=== PATIENT | female | born 1955 | race Caucasian/White ===

== ENCOUNTER → 2018-07-05 | Outpatient (CLI) | payer MEDICARE, MEDICAID ==
[2018-07-05 16:01] LABS: PLATELET COUNT 71 10^3/uL (150-450)
== END ==
LOC: OD 14:09
PROVIDERS: ATTEND Pain Medicine Pain Medicine
DX: D69.6 Thrombocytopenia, unspecified (principal)
CPT/HCPCS: 36415; 85049

== ENCOUNTER → 2018-11-05 | Outpatient (CLI) | payer MEDICARE, MEDICAID ==
--- NOTE | 2018-11-05 16:42 | RADIOLOGY REPORT (SQ) ---
EXAM DESCRIPTION: T SPINE AP/LAT COMPLETED DATE/TIME: 11/05/2018 12:27 pm REASON FOR STUDY: (M54.9)DORSALGIA, UNSPECIFIED I73.9 PERIPHERAL VASCULAR DISEASE, UNSPECIFIED M54. 9 DORSALGIA, UNSPECIFIED COMPARISON: None. NUMBER OF VIEWS: Two views. TECHNIQUE: AP and lateral radiographic images acquired of the thoracic spine. LIMITATIONS: None. FINDINGS: MINERALIZATION: Normal. ALIGNMENT: Normal. No scoliosis. VERTEBRAE: No fracture or bone lesion. Maintained height, normal segmentation. DISCS: Multilevel disc space narrowing with osteophytes. HARDWARE: None in the spine. MEDIASTINUM AND SOFT TISSUES: Normal heart size and aortic contour. No soft tissue abnormality. VISUALIZED LUNG RUSHING: Clear. OTHER: No other significant finding. IMPRESSION: SPONDYLOSIS WITHOUT BONE LESION OR FRACTURE. TECHNICAL DOCUMENTATION: JOB ID: [id number] [employer]- All Rights Reserved Reading location - IP/workstation name: [email or web address]
--- NOTE | 2018-11-06 11:44 | XCELERA REPORT ---
[address] [address] Lower Extremity Arterial Evaluation Name: RODGER DOYLE Age: 62 yrs Gender: Female : 1955 Patient Status: Outpatient Patient Location: Study Date: 11/05/2018 11:24 AM Procedure: A color flow and duplex scan of the lower extremity arteries was performed bilaterally with velocity and waveform anaylsis. Ankle brachial indicies performed. Reason For Study: PVD Ordering Physician: FREDY CONNORS Performed By: Mannie Dee Measurements and Calculations Right Left THREAD WINDER PSV 124.1 96.2 cm/sec Prox PFA PSV 74.6 71.6 cm/sec Prox SFA PSV 96.8 104.8 cm/sec Mid SFA PSV -112.4 -101.2cm/sec Dist SFA PSV -95.5 -97.4 cm/sec Prox Pop A PSV 73.5 66.8 cm/sec Dist AYDE PSV 50.3 61.1 cm/sec Dist LIABILITY CLAIMS REPRESENTATIVE PSV 73.3 91.0 cm/sec Charlie Pedis PSV 27.7 39.6 cm/sec Right Side Arterial Evaluation Normal velocity and triphasic waveforms noted from the Common Femoral artery to the infrageniculate vessels . Ankle Brachial index 1.21. Left Side Arterial Evaluation Normal velocity and triphasic waveforms noted from the Common Femoral artery to the infrageniculate vessels . Ankle Brachial index 1.29. Interpretation Summary No hemodynamically significant lesions in the bilateral lower extremities, on duplex imaging, at rest. Duplex study shows no significant compromise. LELO's show no significant arterial compromise. : FREDY CONNORS > [place]
== END ==
LOC: SP 10:28
PROVIDERS: ATTEND Family Medicine
DX: I73.9 Peripheral vascular disease, unspecified (principal); M47.894 Other spondylosis, thoracic region; M54.9 Dorsalgia, unspecified
CPT/HCPCS: 72070; 93925

== ENCOUNTER 2019-07-07 12:38 | Observation (INO) | payer MEDICARE, MEDICAID ==
[2019-07-07 13:05] LABS: ABSOLUTE EOSINOPHILS # (AUTO) 0.1 10^3/uL (0.0-0.6); ABSOLUTE LYMPHOCYTES (AUTO) 0.8 10^3/uL (0.5-4.7); ABSOLUTE MONOCYTES (AUTO) 0.2 10^3/uL (0.1-1.4); ABSOLUTE NEUT (AUTO) 1.4 10^3/uL (1.7-8.2); BASOPHILS % (AUTO) 0.6 % (0-2); EOSINOPHILS % (AUTO) 5.7 % (0-6); HEMATOCRIT 32.4 % (36.0-47.0); HEMOGLOBIN 10.8 g/dL (12.0-15.5); LYMPHOCYTES % (AUTO) 30.8 % (13-45); MEAN CORPUSCULAR HGB CONC 33.4 g/dL (32.0-36.0); MEAN CORPUSCULAR VOLUME 93 fl (80-97); MONOCYTES % (AUTO) 7.7 % (3-13); SEGMENTED NEUTROPHILS % (AUTO) 55.2 % (42-78); TOTAL CELLS COUNTED % (AUTO) 100 %; WHITE BLOOD COUNT 2.5 10^3/uL (4.0-10.5)
[2019-07-07 13:16] LABS: ALBUMIN 4.1 g/dL (3.5-5.0); ALKALINE PHOSPHATASE 73 U/L (38-126); ANION GAP 9 (5-19); ASPARTATE AMINO TRANSFERASE 36 U/L (14-36); BILIRUBIN,TOTAL 0.6 mg/dL (0.2-1.3); BLOOD UREA NITROGEN 25 mg/dL (7-20); CALCIUM 8.9 mg/dL (8.4-10.2); CARBON DIOXIDE 30 mmol/L (22-30); CHLORIDE 102 mmol/L (98-107); CREATINE KINASE 33 U/L (30-135); GLUCOSE 126 mg/dL (75-110); POTASSIUM 4.3 mmol/L (3.6-5.0); TOTAL PROTEIN 7.2 g/dL (6.3-8.2)
--- NOTE | 2019-07-07 13:23 | ER Document Report ---
ED Medical Screen (RME) - General Chief Complaint: General Weakness Stated Complaint: GENERAL WEAKNESS Time Seen by Provider: 07/07/19 13:14 Primary Care Provider: FREDY CONNORS MD [Primary Care Provider] - Follow up as needed Notes: Patient states that she went to her primary doctor's office for swelling to the extremities, weakness this morning. Patient states she almost fell when ambulating into her doctor's office. Patient brought paperwork from her primary doctor's office that reports that the patient had garbled speech and they were concerned about possible TIA versus stroke wanted her evaluated for this. Patient states that the swelling to the extremities has improved although right leg appears to be more swollen when compared to the left. I have greeted and performed a rapid initial assessment of this patient. A comprehensive ED assessment and evaluation of the patient, analysis of test r esults and completion of the medical decision making process will be conducted by additional ED providers. TRAVEL OUTSIDE OF THE [place] IN LAST 30 DAYS: No - Related Data Allergies/Adverse Reactions: ciprofloxacin Allergy (Verified 07/07/19 12:53) etodolac Allergy (Verified 07/07/19 12:53) metaxalone Allergy (Verified 07/07/19 12:53) naproxen [From Naprosyn] Allergy (Verified 07/07/19 12:53) niacin Allergy (Verified 07/07/19 12:53) oxycodone Allergy (Verified 07/07/19 12:53) Past Medical History - Past Medical History Cardiac Medical History: Reports: Hx Congestive Heart Failure, Hx Hypercholesterolemia, Hx Hypertension Endocrine Medical History: Reports: Hx Diabetes Mellitus Type 2 GI Medical History: Reports: Hx Gastroesophageal Reflux Disease Past Surgical History: Reports: Hx Cholecystectomy, Hx Orthopedic Surgery - R knee, Hx Tonsillectomy Physical Exam - Vital signs Vitals: Resp 19 07/07/19 12:44 - General General appearance: Appears well, Alert Notes: Speech clear at this time 2+ edema to right lower extremity Course - Vital Signs Vital signs: Temp Pulse Resp BP Pulse Ox 97.7 F 20 137/78 H 97 07/07/19 12:46 07/07/19 13:01 07/07/19 13:01 07/07/19 13:01 - Laboratory Result Diagrams: 07/07/19 12:45 07/07/19 12:45 Laboratory results interpreted by me: 07/07/19 12:45 BUN 25 H Glucose 126 H Doctor's Discharge - Discharge Referrals: FREDY CONNORS MD [Primary Care Provider] - Follow up as needed
[2019-07-07 13:28] LABS: PLATELET COUNT 52 10^3/uL (150-450)
[2019-07-07 13:30] LABS: INTERNATIONAL RATION (INR) 1.11
[2019-07-07 13:31] LABS: PARTIAL THROMBOPLASTIN TIME 30.3 SEC (23.5-35.8)
[2019-07-07 13:33] LABS: CREATINE KINASE MB 0.49 ng/mL (<4.55)
[2019-07-07 13:34] LABS: PROTHROMBIN TIME 14.4 SEC (11.4-15.4)
[2019-07-07 13:45] LABS: TROPONIN I < 0.012 ng/mL
[2019-07-07 13:49] LABS: APPEARANCE,URINE CLEAR; BILIRUBIN,URINE NEGATIVE (NEGATIVE); COLOR,URINE COLORLESS; GLUCOSE, URINE NEGATIVE (NEGATIVE); KETONES,URINE NEGATIVE (NEGATIVE); LEUKOCYTE ESTERASE,URINE NEGATIVE (NEGATIVE); NITRITE,URINE NEGATIVE (NEGATIVE); PROTEIN,URINE NEGATIVE (NEGATIVE); URINE SPECIFIC GRAVITY 1.004; UROBILINOGEN,URINE NEGATIVE mg/dL (<2.0)
--- NOTE | 2019-07-07 14:11 | RADIOLOGY REPORT (SQ) ---
EXAM DESCRIPTION: CHEST SINGLE VIEW COMPLETED DATE/TIME: 07/07/2019 1:55 pm REASON FOR STUDY: AMS COMPARISON: None. TECHNIQUE: Single frontal radiographic view of the chest acquired. NUMBER OF VIEWS: One view. LIMITATIONS: None. FINDINGS: LUNGS AND PLEURA: No pneumothorax. No consolidation or significant pleural effusion. MEDIASTINUM AND HILAR STRUCTURES: Age-appropriate. HEART AND VASCULAR STRUCTURES: Heart normal size. BONES: No acute findings. HARDWARE: None in the chest. OTHER: No other significant finding. IMPRESSION: NO ACUTE FINDINGS. TECHNICAL DOCUMENTATION: JOB ID: [id number] 2010 [employer]- All Rights Reserved Reading location - IP/workstation name: [email or web address]
--- NOTE | 2019-07-07 14:30 | ER Document Report ---
Entered by ZACH BRISCOE SCRIBE 07/07/19 1405 Acting as scribe for:LUPILLO CHAVARRIA DO ED General - General Chief Complaint: General Weakness Stated Complaint: GENERAL WEAKNESS Time Seen by Provider: 07/07/19 13:14 Primary Care Provider: FREDY CONNORS MD [Primary Care Provider] - Follow up as needed Mode of Arrival: Ambulatory Information source: Patient TRAVEL OUTSIDE OF THE [place] IN LAST 30 DAYS: No - Related Data Allergies/Adverse Reactions: ciprofloxacin Allergy (Verified 07/07/19 12:53) etodolac Allergy (Verified 07/07/19 12:53) metaxalone Allergy (Verified 07/07/19 12:53) naproxen [From Naprosyn] Allergy (Verified 07/07/19 12:53) niacin Allergy (Verified 07/07/19 12:53) oxycodone Allergy (Verified 07/07/19 12:53) Past Medical History - General Information source: Patient - Social History Smoking Status: Unknown if Ever Smoked Cigarette use (# per day): No Frequency of alcohol use: None Drug Abuse: None Lives with: Family Patient has suicidal ideation: No Patient has homicidal ideation: No - Past Medical History Cardiac Medical History: Reports: Hx Congestive Heart Failure, Hx Hypercholesterolemia, Hx Hypertension Endocrine Medical History: Reports: Hx Diabetes Mellitus Type 2 GI Medical History: Reports: Hx Gastroesophageal Reflux Disease Past Surgical History: Reports: Hx Cholecystectomy, Hx Orthopedic Surgery - R knee, Hx Tonsillectomy Review of Systems - Review of Systems Constitutional: See HPI, Weakness EENT: No symptoms reported Cardiovascular: denies: Chest pain Respiratory: See HPI, Short of breath Gastrointestinal: denies: Diarrhea, Nausea, Vomiting Genitourinary: No symptoms reported Female Genitourinary: No symptoms reported Musculoskeletal: No symptoms reported Skin: No symptoms reported Hematologic/Lymphatic: No symptoms reported Neurological/Psychological: No symptoms reported -: Yes All other systems reviewed and negative Physical Exam - Vital signs Vitals: Resp 19 07/07/19 12:44 - Notes Notes: Physical Exam: General: Alert, chronically ill-appearing. HEENT: Normocephalic. Atraumatic. PERRL. Extraocular movements intact. No posterior oropharynx erythema or exudate, airway is patent. TMs are clear and non-bulging bilaterally. Neck: Supple. Non-tender. Respiratory: Decreased breath sounds bilaterally. Clear and equal breath sounds bilaterally. Cardiovascular: Regular rate and rhythm. Abdominal: Obese. Non-tender. No distension. Normal Bowel Sounds. Back: No gross abnormalities. Extremities: Moves all four extremities. Upper extremities: Normal inspection. Normal ROM. Lower extremities: Trace pedal edema bilaterally. Normal ROM. Neurological: Normal cognition. AAOx4. Normal speech. Psychological: Normal affect. Normal Mood. Skin: Warm. Dry. Normal color. Course - Vital Signs Vital signs: Temp Pulse Resp BP Pulse Ox 97.7 F 78 18 153/85 H 98 07/07/19 12:46 07/07/19 13:36 07/07/19 14:00 07/07/19 13:36 07/07/19 14:00 - Laboratory Result Diagrams: 07/07/19 12:45 07/07/19 12:45 Laboratory results interpreted by me: 07/07/19 07/07/19 12:45 12:45 WBC 2.5 L RBC 3.50 L Hgb 10.8 L Hct 32.4 L RDW 15.0 H Plt Count 52 L Absolute Neuts (auto) 1.4 L BUN 25 H Glucose 126 H Discharge - Discharge Referrals: FREDY CONNORS MD [Primary Care Provider] - Follow up as needed I personally performed the services described in the documentation, reviewed and edited the documentation which was dictated to the scribe in my presence, and it accurately records my words and actions.
--- NOTE | 2019-07-07 14:30 | RADIOLOGY REPORT (SQ) ---
EXAM DESCRIPTION: CT HEAD WITHOUT COMPLETED DATE/TIME: 07/07/2019 2:21 pm REASON FOR STUDY: AMS COMPARISON: None. TECHNIQUE: Axial images acquired through the brain without intravenous contrast. Images reviewed wi th bone, brain and subdural windows. Additional sagittal and coronal reconstructions were generated. Images stored on PACS. All CT scanners at this facility use dose modulation, iterative reconstruction, and/or weight based d osing when appropriate to reduce radiation dose to as low as reasonably achievable (ALARA). [facility]: Dose Right [facility]: CareDose [facility]: Dose Right [facility]: Teradose 4D [facility]: GelSight RADIATION DOSE: CT Rad equipment meets quality standard of care and radiation dose reduction techniq ues were employed. CTDIvol: 53.2 mGy. DLP: 1017 mGy-cm. mGy. LIMITATIONS: None. FINDINGS: VENTRICLES: Normal size and contour. CEREBRUM: No masses. No hemorrhage. No midline shift. No evidence for acute infarction. Normal gra y/white matter differentiation. No areas of low density in the white matter. CEREBELLUM: No masses. No hemorrhage. No alteration of density. No evidence for acute infarction. EXTRAAXIAL SPACES: No fluid collections. No masses. ORBITS AND GLOBE: No intra- or extraconal masses. Normal contour of globe without masses. CALVARIUM: No fracture. PARANASAL SINUSES: No fluid or mucosal thickening. SOFT TISSUES: No mass or hematoma. OTHER: No other significant finding. IMPRESSION: NORMAL BRAIN CT WITHOUT CONTRAST. EVIDENCE OF ACUTE STROKE: NO. COMMENT: Quality ID # [id number]: Final reports with documentation of one or more dose reduction techniques (e.g., Automated exposure control, adjustment of the mA and/or kV according to patient size, use of iterative reconstruction technique) TECHNICAL DOCUMENTATION: JOB ID: [id number] 2010 [email or web address]- All Rights Reserved Reading location - IP/workstation name: [email or web address]
--- NOTE | 2019-07-07 15:21 | RADIOLOGY REPORT (SQ) ---
EXAM DESCRIPTION: VENOUS UNILATERAL LOWER COMPLETED DATE/TIME: 07/07/2019 2:49 pm REASON FOR STUDY: RLE COMPARISON: None. TECHNIQUE: Dynamic and static shaver scale and color images acquired of the right leg venous system. S elected spectral images acquired with additional compression and augmentation maneuvers. The contrala teral common femoral vein and saphenofemoral junction were also imaged. Images stored on PACS. LIMITATIONS: None. FINDINGS: COMMON FEMORAL: Normal phasicity, compression and augmentation. No visualized echogenic ma terial on shaver scale. No defects on color images. FEMORAL: Normal compression and augmentation. No visualized echogenic material on shaver scale. No defe cts on color images. POPLITEAL: Normal compression, augmentation. No visualized echogenic material on shaver scale. No defec ts on color images. CALF VESSELS: Normal compression, augmentation. No visualized echogenic material on shaver scale. No de fects on color images. GSV and SSV: Normal compression, augmentation. No visualized echogenic material on shaver scale. No def ects on color images. ANY DEEP VENOUS INSUFFICIENCY: Not evaluated. ANY EVIDENCE OF POPLITEAL CYST: No. OTHER: No other significant finding. CONTRALATERAL COMMON FEMORAL VEIN AND SAPHENOFEMORAL JUNCTION: Normal phasicity, compression and augmentation. No visualized echogenic material on shaver scale. No de fects on color images. IMPRESSION: NO EVIDENCE DVT OR SVT IN THE RIGHT LEG. TECHNICAL DOCUMENTATION: JOB ID: [id number] 2010 [employer]- All Rights Reserved Reading location - IP/workstation name: [email or web address]
[2019-07-07] MEDS ORDERED: ACETAMINOPHEN 325 MG TABLET PO PRN (16:27)
[2019-07-07] MEDS ORDERED: ONDANSETRON HCL INJ/PF 4 MG/2 ML SDV IV PRN (16:27)
[2019-07-07] MEDS ORDERED: DEXTROSE 40% GEL 15 GM TUBE PO PRN ×2 (16:32)
[2019-07-07] MEDS ORDERED: GLUCAGON,HUMAN RECOMB 1 MG INJ IM PRN (16:32)
[2019-07-07] MEDS ORDERED: DEXTROSE 50%-WATER 25 GM/50 ML DISP.SYRIN IV PRN ×2 (16:32)
--- NOTE | 2019-07-07 17:16 | PDOC H&P ---
History of Present Illness Admission Date/PCP: 07/07/19 15:58 FREDY CONNORS MD Patient complains of: Presyncope History of Present Illness: NITIN DOYLE is a 63 year old female with a history of congestive heart failure, type 2 diabetes mellitus, hypertension, who presents to the hospital after experiencing an episode of near syncope while at her primary care provider's office. Patient went to see her primary care provider for routine visit and also to discuss her increased swelling. While in the office, patient got up to get on the scale and immediately felt very lightheaded and almost passed out. She was sat down. Her blood glucose was measured at that time which was 88. She was given some fluids and sent to the ER for further evaluation. Patient never experienced any syncope. She denied any association with palpitations, chest pain, shortness of breath or flushing. Endorses several episodes where she has stood up and suddenly felt lightheaded. In the ER, head CT was done and patient was referred to hospitalist service for admission for observation. Past Medical History Cardiac Medical History: Reports: Congestive Heart Failure, Hyperlipidema, Hypertension Endocrine Medical History: Reports: Diabetes Mellitus Type 2 GI Medical History: Reports: Gastroesophageal Reflux Disease Past Surgical History Past Surgical History: Reports: Cholecystectomy, Orthopedic Surgery - R knee, Tonsillectomy Social History Lives with: Family Smoking Status: Former Smoker Frequency of Alcohol Use: Rare Hx Recreational Drug Use: No - Advance Directive Resuscitation Status: Do Not Intubate - DNI but okay for CPR confirmed by patient. Family History Family History: DM, Hypertension Parental Family History Reviewed: Yes Children Family History Reviewed: NA Sibling(s) Family History Reviewed.: NA Medication/Allergy Allergies/Adverse Reactions: ciprofloxacin Allergy (Verified 07/07/19 12:53) etodolac Allergy (Verified 07/07/19 12:53) metaxalone Allergy (Verified 07/07/19 12:53) naproxen [From Naprosyn] Allergy (Verified 07/07/19 12:53) niacin Allergy (Verified 07/07/19 12:53) oxycodone Allergy (Verified 07/07/19 12:53) Review of Systems Constitutional: PRESENT: fatigue. ABSENT: chills, fever(s) Eyes: ABSENT: visual disturbances Nose, Mouth, and Throat: ABSENT: headache(s) Cardiovascular: ABSENT: chest pain Respiratory: ABSENT: dyspnea Gastrointestinal: PRESENT: nausea. ABSENT: abdominal pain, diarrhea, vomiting Genitourinary: ABSENT: dysuria Integumentary: ABSENT: diaphoresis Neurological: PRESENT: dizziness, weakness. ABSENT: confusion, convulsions, focal weakness, lack of coordination, paresthesias, syncope Psychiatric: ABSENT: anxiety Endocrine: ABSENT: polyuria Physical Exam Vital Signs: Temp Pulse Resp BP Pulse Ox 97.7 F 78 24 H 106/60 95 07/07/19 12:46 07/07/19 13:36 07/07/19 16:01 07/07/19 16:01 07/07/19 16:01 Intake & Output 07/06/19 07/07/19 07/08/19 06:59 06:59 06:59 Weight 135.5 kg General appearance: PRESENT: no acute distress, cooperative Eye exam: PRESENT: EOMI Neck exam: ABSENT: JVD Respiratory exam: PRESENT: clear to auscultation adrian, unlabored. ABSENT: wheezes Cardiovascular exam: PRESENT: RRR, +S1, +S2. ABSENT: diastolic murmur, systolic murmur, tachycardia GI/Abdominal exam: PRESENT: soft. ABSENT: rebound, rigid, tenderness Extremities exam: PRESENT: +1 edema. ABSENT: calf tenderness Neurological exam: PRESENT: alert, awake, oriented to person, oriented to place, oriented to time, oriented to situation Psychiatric exam: ABSENT: agitated, anxious Focused psych exam: ABSENT: pressured speech Results Laboratory Results: 07/07/19 12:45 07/07/19 12:45 07/07/19 07/07/19 07/07/19 12:45 12:45 12:45 WBC 2.5 L RBC 3.50 L Hgb 10.8 L Hct 32.4 L MCV 93 MCH 31.0 MCHC 33.4 RDW 15.0 H Plt Count 52 L Seg Neutrophils % 55.2 Sodium 140.9 Potassium 4.3 Chloride 102 Carbon Dioxide 30 Anion Gap 9 BUN 25 H Creatinine 0.79 Est GFR ( Amer) > 60 Glucose 126 H Calcium 8.9 Magnesium Total Bilirubin 0.6 AST 36 Alkaline Phosphatase 73 Total Protein 7.2 Albumin 4.1 TSH 1.53 Urine Color Urine Appearance Urine pH Ur Specific [place] Urine Protein Urine Glucose (UA) Urine Ketones Urine Blood Urine Nitrite Ur Leukocyte Esterase Urine WBC (Auto) Urine RBC (Auto) 07/07/19 07/07/19 12:45 13:29 WBC RBC Hgb Hct MCV MCH MCHC RDW Plt Count Seg Neutrophils % Sodium Potassium Chloride Carbon Dioxide Anion Gap BUN Creatinine Est GFR ( Amer) Glucose Calcium Magnesium 1.8 Total Bilirubin AST Alkaline Phosphatase Total Protein Albumin TSH Urine Color COLORLESS Urine Appearance CLEAR Urine pH 5.0 Ur Specific [place] 1.004 Urine Protein NEGATIVE Urine Glucose (UA) NEGATIVE Urine Ketones NEGATIVE Urine Blood NEGATIVE Urine Nitrite NEGATIVE Ur Leukocyte Esterase NEGATIVE Urine WBC (Auto) 5 Urine RBC (Auto) 1 07/07/19 07/07/19 12:45 12:45 Creatine Kinase 33 CK-MB (CK-2) 0.49 Troponin I < 0.012 Impressions: Chest X-Ray 07/07/19 13:19 IMPRESSION: NO ACUTE FINDINGS. Head CT 07/07/19 13:19 IMPRESSION: NORMAL BRAIN CT WITHOUT CONTRAST. EVIDENCE OF ACUTE STROKE: NO. Venous Doppler Study 07/07/19 13:20 IMPRESSION: NO EVIDENCE DVT OR SVT IN THE RIGHT LEG. Assessment and Plan - Diagnosis (1) Postural dizziness with presyncope Is this a current diagnosis for this admission?: Yes Plan: Orthostatics performed but negative in the hospital. However he still seems like patient's lightheadedness and presyncopal episode was clearly postural upon standing which is more suggestive of orthostatic hypotension despite negative orthostatics. We will monitor on telemetry through tonight EKG shows normal sinus rhythm and no evidence of arrhythmia. Denies any recent medication changes Head CT unimpressive (2) Diabetes mellitus type 2 in obese Is this a current diagnosis for this admission?: Yes Plan: Patient states that she takes Levemir 60 units nightly and Humalog 20 units in the morning. We will continue Levemir. Sliding scale insulin. Accu-Cheks. (3) Hypertension Qualifiers: Hypertension type: essential hypertension Qualified Code(s): I10 - Essential (primary) hypertension Is this a current diagnosis for this admission?: Yes Plan: Continue home regimen once medical reconciliation is completed - Time Time Spent with patient: 35 or more minutes
--- NOTE | 2019-07-07 21:34 | EKG REPORT ---
SEVERITY:- NORMAL ECG - SINUS RHYTHM : Confirmed by: Tyson Deal MD 07-Jul-2019 21:33:44
[2019-07-07] MEDS ORDERED: INSULIN GLARGINE,HUM.REC.ANLOG 1,000 UNIT/10 ML VIAL SUBCUT SCH (22:00)
[2019-07-07] MEDS ORDERED: INSULIN GLARGINE,HUM.REC.ANLOG 1,000 UNIT/10 ML VIAL (PYX) SUBCUT ONE (22:00)
[2019-07-07] MEDS: INSULIN LISPRO 100 UNIT/ML 3 ML VIAL SUBCUT SCH (22:07)
[2019-07-07] MEDS: SPIRONOLACTONE 25 MG TABLET PO SCH (22:08)
[2019-07-07] MEDS: ATORVASTATIN CALCIUM 40 MG TABLET PO SCH (22:08)
[2019-07-07] MEDS: MONTELUKAST SODIUM 10 MG TABLET PO SCH (22:10)
--- NOTE | 2019-07-08 07:41 | EKG REPORT ---
SEVERITY:- BORDERLINE ECG - SINUS RHYTHM BORDERLINE PROLONGED QT INTERVAL POOR R WAVE PROGRESSION ANTERIOR LEADS, ? LEAD PLACEMENT ERROR. : Confirmed by: Tyson Deal MD 08-Jul-2019 07:40:55
[2019-07-08] MEDS: INSULIN LISPRO 100 UNIT/ML 3 ML VIAL SUBCUT SCH ×4 (08:19→21:56)
[2019-07-08] MEDS: PIOGLITAZONE HCL 30 MG TABLET PO SCH (08:19)
[2019-07-08] MEDS: METFORMIN HCL 500 MG TABLET PO SCH (08:19)
[2019-07-08] MEDS: CYANOCOBALAMIN (VITAMIN B-12) 1,000 MCG TABLET PO SCH (09:27)
[2019-07-08] MEDS: TORSEMIDE 20 MG TABLET PO SCH (09:27)
[2019-07-08] MEDS: FLUOXETINE HCL 20 MG CAPSULE PO SCH (09:27)
[2019-07-08] MEDS: METOPROLOL SUCCINATE 25 MG TAB.SR.24H PO SCH (09:27)
[2019-07-08] MEDS: PANTOPRAZOLE SODIUM 40 MG TABLET.DR PO SCH (09:27)
[2019-07-08] MEDS: FERROUS SULFATE 325 MG TABLET PO SCH (09:27)
[2019-07-08] MEDS: SPIRONOLACTONE 25 MG TABLET PO SCH ×2 (09:28→21:57)
[2019-07-08] MEDS: ENOXAPARIN SODIUM INJ 40 MG/0.4 ML DISP.SYRIN SUBCUT SCH (09:29)
--- NOTE | 2019-07-08 12:06 | PDOC PROGRESS REPORT ---
Subjective Progress Note for:: 07/08/19 Subjective:: Patient was only able to walk about 15 feet with physical therapy due to dizziness. She describes the dizziness as lightheadedness. Continues to deny vertigo. Denies any headache, focal weaknesses, muscle weakness, paresthesias or other neurological deficits. Reason For Visit: PRESYNCOPE Physical Exam Vital Signs: Temp Pulse Resp BP Pulse Ox 97.8 F 86 18 123/50 L 96 07/08/19 08:00 07/08/19 08:00 07/08/19 08:00 07/08/19 08:00 07/08/19 08:00 Intake & Output 07/07/19 07/08/19 07/09/19 06:59 06:59 06:59 Intake Total 1200 Balance 1200 Weight 134 kg General appearance: PRESENT: no acute distress, cooperative Neck exam: ABSENT: JVD Respiratory exam: PRESENT: clear to auscultation adrian, unlabored. ABSENT: tachypnea, wheezes Cardiovascular exam: PRESENT: RRR, +S1, +S2. ABSENT: tachycardia GI/Abdominal exam: PRESENT: normal bowel sounds, soft. ABSENT: rebound, rigid, tenderness Neurological exam: PRESENT: alert, awake, oriented to person, oriented to place, oriented to time Results Laboratory Results: 07/07/19 12:45 07/07/19 12:45 07/07/19 07/07/19 07/07/19 12:45 12:45 12:45 WBC 2.5 L RBC 3.50 L Hgb 10.8 L Hct 32.4 L MCV 93 MCH 31.0 MCHC 33.4 RDW 15.0 H Plt Count 52 L Seg Neutrophils % 55.2 Sodium 140.9 Potassium 4.3 Chloride 102 Carbon Dioxide 30 Anion Gap 9 BUN 25 H Creatinine 0.79 Est GFR ( Amer) > 60 Glucose 126 H Calcium 8.9 Magnesium Total Bilirubin 0.6 AST 36 Alkaline Phosphatase 73 Total Protein 7.2 Albumin 4.1 TSH 1.53 Urine Color Urine Appearance Urine pH Ur Specific [place] Urine Protein Urine Glucose (UA) Urine Ketones Urine Blood Urine Nitrite Ur Leukocyte Esterase Urine WBC (Auto) Urine RBC (Auto) 07/07/19 07/07/19 12:45 13:29 WBC RBC Hgb Hct MCV MCH MCHC RDW Plt Count Seg Neutrophils % Sodium Potassium Chloride Carbon Dioxide Anion Gap BUN Creatinine Est GFR ( Amer) Glucose Calcium Magnesium 1.8 Total Bilirubin AST Alkaline Phosphatase Total Protein Albumin TSH Urine Color COLORLESS Urine Appearance CLEAR Urine pH 5.0 Ur Specific [place] 1.004 Urine Protein NEGATIVE Urine Glucose (UA) NEGATIVE Urine Ketones NEGATIVE Urine Blood NEGATIVE Urine Nitrite NEGATIVE Ur Leukocyte Esterase NEGATIVE Urine WBC (Auto) 5 Urine RBC (Auto) 1 07/07/19 07/07/19 12:45 12:45 Creatine Kinase 33 CK-MB (CK-2) 0.49 Troponin I < 0.012 Impressions: Chest X-Ray 07/07/19 13:19 IMPRESSION: NO ACUTE FINDINGS. Head CT 07/07/19 13:19 IMPRESSION: NORMAL BRAIN CT WITHOUT CONTRAST. EVIDENCE OF ACUTE STROKE: NO. Venous Doppler Study 07/07/19 13:20 IMPRESSION: NO EVIDENCE DVT OR SVT IN THE RIGHT LEG. Assessment and Plan - Diagnosis (1) Postural dizziness with presyncope Is this a current diagnosis for this admission?: Yes Plan: Orthostatics vitals repeated this morning after episode of dizziness with physical therapy and is once again negative. However dizziness continues to occ ur mostly on standing. She continues to describe the dizziness as lightheadedness with some loss of balance but denies vertigo. Telemetry reviewed and shows no evidence of any arrhythmias EKG on admission showed normal sinus rhythm and no evidence of arrhythmia. Denies any recent medication changes Head CT unimpressive At this point, will continue with physical therapy and will try some meclizine to see if it helps patient's dizziness.hopefully patient can show some improvement in her ambulation distance tomorrow to ensure safe discharge. (2) Diabetes mellitus type 2 in obese Is this a current diagnosis for this admission?: Yes Plan: Patient states that she takes Levemir 60 units nightly and Humalog 20 units in the morning, metformin and pioglitazone. We will continue Levemir, metformin and pioglitazone. Sliding scale insulin. Accu-Cheks. (3) Hypertension Qualifiers: Hypertension type: essential hypertension Qualified Code(s): I10 - Essential (primary) hypertension Is this a current diagnosis for this admission?: Yes Plan: Continue home regimen - Time Time Spent with patient: 15-24 minutes
[2019-07-08] MEDS: MECLIZINE HCL 25 MG TABLET PO SCH ×2 (13:31→18:27)
[2019-07-08] MEDS: ATORVASTATIN CALCIUM 40 MG TABLET PO SCH (21:58)
[2019-07-08] MEDS: MONTELUKAST SODIUM 10 MG TABLET PO SCH (21:58)
[2019-07-08] MEDS ORDERED: INSULIN GLARGINE,HUM.REC.ANLOG 1,000 UNIT/10 ML VIAL SUBCUT SCH ×2 (22:00)
[2019-07-09] MEDS: METFORMIN HCL 500 MG TABLET PO SCH (07:47)
[2019-07-09] MEDS: INSULIN LISPRO 100 UNIT/ML 3 ML VIAL SUBCUT SCH ×2 (07:47→11:59)
[2019-07-09] MEDS: PIOGLITAZONE HCL 30 MG TABLET PO SCH (07:47)
[2019-07-09] MEDS: TORSEMIDE 20 MG TABLET PO SCH (10:21)
[2019-07-09] MEDS: CYANOCOBALAMIN (VITAMIN B-12) 1,000 MCG TABLET PO SCH (10:22)
[2019-07-09] MEDS: METOPROLOL SUCCINATE 25 MG TAB.SR.24H PO SCH (10:22)
[2019-07-09] MEDS: SPIRONOLACTONE 25 MG TABLET PO SCH (10:22)
[2019-07-09] MEDS: FLUOXETINE HCL 20 MG CAPSULE PO SCH (10:22)
[2019-07-09] MEDS: PANTOPRAZOLE SODIUM 40 MG TABLET.DR PO SCH (10:22)
[2019-07-09] MEDS: MECLIZINE HCL 25 MG TABLET PO SCH (10:22)
[2019-07-09] MEDS: FERROUS SULFATE 325 MG TABLET PO SCH (10:22)
[2019-07-09] MEDS: ENOXAPARIN SODIUM INJ 40 MG/0.4 ML DISP.SYRIN SUBCUT SCH (10:26)
--- NOTE | 2019-07-09 10:47 | PDOC DISCHARGE SUMMARY ---
Impression - Admit/DC Date/PCP Admission Date/Primary Care Provider: 07/07/19 15:58 FREDY CONNORS MD Discharge Date: 07/09/19 - Discharge Diagnosis (1) Postural dizziness with presyncope Is this a current diagnosis for this admission?: Yes (2) Diabetes mellitus type 2 in obese Is this a current diagnosis for this admission?: Yes (3) Hypertension Is this a current diagnosis for this admission?: Yes (4) Leukopenia Is this a current diagnosis for this admission?: Yes (5) Thrombocytopenia Is this a current diagnosis for this admission?: Yes - Additional Information Resuscitation Status: DNI with chest compressions Discharge Diet: As Tolerated Discharge Activity: Activity As Tolerated Referrals: FREDY CONNORS MD [Primary Care Provider] - 07/10/19 11:15 am Prescriptions: Meclizine HCl [Antivert 25 mg Tablet] 25 mg PO BIDP PRN #20 tablet PRN Reason: Home Medications: Atorvastatin Calcium [Lipitor 40 mg Tablet] 40 mg PO QHS 07/07/19 Celecoxib [Celebrex 200 mg Capsule] 200 mg PO Q12 07/07/19 Cholecalciferol (Vitamin D3) [Vitamin D3] 2,000 unit PO DAILY 07/07/19 Cyanocobalamin (Vitamin B-12) [Vitamin B-12] 1,000 mcg PO DAILY 07/07/19 Ferrous Sulfate [Feosol 325 mg Tablet] 325 mg PO DAILY 07/07/19 Fluoxetine HCl [Prozac 20 mg Capsule] 20 mg PO DAILY 07/07/19 Insulin Detemir [Levemir Insulin 100 units/mL Insulin Pen] 60 unit SUBCUT QHS 07/07/19 Insulin Lispro [Humalog Kwikpen U-100] 20 unit SQ QAM 07/07/19 Metformin HCl [Metformin HCl ER] 500 mg PO DAILY 07/07/19 Metoprolol Succinate [Toprol Xl 25 mg Tab.sr] 25 mg PO DAILY 07/07/19 Montelukast Sodium [Singulair 10 mg Tablet] 10 mg PO QHS 07/07/19 Nitroglycerin [Nitrostat 0.4 mg (1/150 Gr) Tabs 25/Bottle] 1 tab SL Q5MP PRN 07/07/19 Pantoprazole Sodium [Protonix] 40 mg PO DAILY 07/07/19 Pioglitazone HCl 45 mg PO DAILY 07/07/19 Spironolactone [Aldactone 25 mg Tablet] 12.5 mg PO BID 07/07/19 Torsemide 10 mg PO QAM 07/07/19 Meclizine HCl [Antivert 25 mg Tablet] 25 mg PO BIDP PRN #20 tablet 07/09/19 History of Present Illiness History of Present Illness: NITIN DOYLE is a 63 year old female with a history of congestive heart failure, type 2 diabetes mellitus, hypertension, who presents to the hospital after experiencing an episode of near syncope while at her primary care provider's office. Patient went to see her primary care provider for routine visit and also to discuss her increased swelling. While in the office, patient got up to get on the scale and immediately felt very lightheaded and almost passed out. She was sat down. Her blood glucose was measured at that time which was 88. She was given some fluids and sent to the ER for further evaluation. Patient never experienced any syncope. She denied any association with palpitations, chest pain, shortness of breath or flushing. Endorses several episodes where she has stood up and suddenly felt lightheaded. In the ER, head CT was done and patient was referred to hospitalist service for admission for observation. Hospital Course Hospital Course: Patient was admitted to the hospital for evaluation of presyncopal episode as well as patient's lightheadedness/dizziness. Head CT scan was unremarkable. Lab work only revealed leukopenia and thrombocytopenia. Of note patient's thrombocytopenia is not new. Patient will be following up with primary care provider for evaluation of her thrombocytopenia and leukopenia. Regarding patient's dizziness, orthostatic vital signs were done twice during this admission and were negative both times. Telemetry monitoring for 2 days showed no evidence of arrhythmia. Physical exam showed no focal neurological deficits. Patient was evaluated by physical therapy and initially performed poorly due to dizziness yesterday. Patient persistently denies vertigo even though her dizziness seems to be on ambulation making it hard for patient to walk yesterday. I started patient on meclizine and today patient has noted significant improvement in her dizziness. She walked very well with physical therapy today and only needed very mild assistance. Patient has been cleared by physical therapy. Patient feels that she does not need home PT and that she would do well with a cane. Patient has been discharged with meclizine to be used on an as-needed basis and has been scheduled to follow-up with her primary care provider for further care. Physical Exam Vital Signs: Temp Pulse Resp BP Pulse Ox 98.2 F 80 16 112/53 L 99 07/09/19 07:22 07/09/19 07:22 07/09/19 07:22 07/09/19 07:22 07/09/19 07:22 Intake & Output 07/08/19 07/09/19 07/10/19 06:59 06:59 06:59 Intake Total 1200 2968 Balance 1200 2968 Weight 134 kg 135.4 kg General appearance: PRESENT: no acute distress, cooperative Neck exam: ABSENT: JVD Respiratory exam: PRESENT: unlabored Cardiovascular exam: ABSENT: tachycardia Neurological exam: PRESENT: alert, awake, oriented to person, oriented to place, oriented to time, oriented to situation Results Laboratory Results: WBC 2.5 10^3/uL (4.0-10.5) L 07/07/19 12:45 RBC 3.50 10^6/uL (3.72-5.28) L 07/07/19 12:45 Hgb 10.8 g/dL (12.0-15.5) L 07/07/19 12:45 Hct 32.4 % (36.0-47.0) L 07/07/19 12:45 MCV 93 fl (80-97) 07/07/19 12:45 MCH 31.0 pg (27.0-33.4) 07/07/19 12:45 MCHC 33.4 g/dL (32.0-36.0) 07/07/19 12:45 RDW 15.0 % (11.5-14.0) H 07/07/19 12:45 Plt Count 52 10^3/uL (150-450) L 07/07/19 12:45 Lymph % (Auto) 30.8 % (13-45) 07/07/19 12:45 Gates % (Auto) 7.7 % (3-13) 07/07/19 12:45 Eos % (Auto) 5.7 % (0-6) 07/07/19 12:45 Baso % (Auto) 0.6 % (0-2) 07/07/19 12:45 Absolute Neuts (auto) 1.4 10^3/uL (1.7-8.2) L 07/07/19 12:45 Absolute Lymphs (auto) 0.8 10^3/uL (0.5-4.7) 07/07/19 12:45 Absolute Monos (auto) 0.2 10^3/uL (0.1-1.4) 07/07/19 12:45 Absolute Eos (auto) 0.1 10^3/uL (0.0-0.6) 07/07/19 12:45 Absolute Basos (auto) 0.0 10^3/uL (0.0-0.2) 07/07/19 12:45 Seg Neutrophils % 55.2 % (42-78) 07/07/19 12:45 PT 14.4 SEC (11.4-15.4) 07/07/19 12:45 INR 1.11 07/07/19 12:45 APTT 30.3 SEC (23.5-35.8) 07/07/19 12:45 Sodium 140.9 mmol/L (137-145) 07/07/19 12:45 Potassium 4.3 mmol/L (3.6-5.0) 07/07/19 12:45 Chloride 102 mmol/L (98-107) 07/07/19 12:45 Carbon Dioxide 30 mmol/L (22-30) 07/07/19 12:45 Anion Gap 9 (5-19) 07/07/19 12:45 BUN 25 mg/dL (7-20) H 07/07/19 12:45 Creatinine 0.79 mg/dL (0.52-1.25) 07/07/19 12:45 Est GFR ( Amer) > 60 (>60) 07/07/19 12:45 Est GFR (MDRD) Non-Af > 60 (>60) 07/07/19 12:45 Glucose 126 mg/dL (75-110) H 07/07/19 12:45 POC Glucose 181 mg/dL (70-110) H 07/09/19 07:22 Calcium 8.9 mg/dL (8.4-10.2) 07/07/19 12:45 Magnesium 1.8 mg/dL (1.6-2.3) 07/07/19 12:45 Total Bilirubin 0.6 mg/dL (0.2-1.3) 07/07/19 12:45 Direct Bilirubin 0.0 mg/dL (0.0-0.4) 07/07/19 12:45 Neonat Total Bilirubin Not Reportable 07/07/19 12:45 Neonat Direct Bilirubin Not Reportable 07/07/19 12:45 Neonat Indirect Bili Not Reportable 07/07/19 12:45 AST 36 U/L (14-36) 07/07/19 12:45 ALT 20 U/L (<35) 07/07/19 12:45 Alkaline Phosphatase 73 U/L (38-126) 07/07/19 12:45 Creatine Kinase 33 U/L (30-135) 07/07/19 12:45 CK-MB (CK-2) 0.49 ng/mL (<4.55) 07/07/19 12:45 Troponin I < 0.012 ng/mL 07/07/19 12:45 Total Protein 7.2 g/dL (6.3-8.2) 07/07/19 12:45 Albumin 4.1 g/dL (3.5-5.0) 07/07/19 12:45 TSH 1.53 uIU/mL (0.47-4.68) 07/07/19 12:45 Urine Color COLORLESS 07/07/19 13:29 Urine Appearance CLEAR 07/07/19 13:29 Urine pH 5.0 (5.0-9.0) 07/07/19 13:29 Ur Specific [place] 1.004 07/07/19 13:29 Urine Protein NEGATIVE mg/dL (NEGATIVE) 07/07/19 13:29 Urine Glucose (UA) NEGATIVE mg/dL (NEGATIVE) 07/07/19 13:29 Urine Ketones NEGATIVE mg/dL (NEGATIVE) 07/07/19 13:29 Urine Blood NEGATIVE (NEGATIVE) 07/07/19 13:29 Urine Nitrite NEGATIVE (NEGATIVE) 07/07/19 13:29 Urine Bilirubin NEGATIVE (NEGATIVE) 07/07/19 13:29 Urine Urobilinogen NEGATIVE mg/dL (<2.0) 07/07/19 13:29 Ur Leukocyte Esterase NEGATIVE (NEGATIVE) 07/07/19 13:29 Urine WBC (Auto) 5 /HPF 07/07/19 13:29 Urine RBC (Auto) 1 /HPF 07/07/19 13:29 Squamous Epi Cells Auto 1 /HPF 07/07/19 13:29 Urine Mucus (Auto) RARE /LPF 07/07/19 13:29 Urine Ascorbic Acid NEGATIVE (NEGATIVE) 07/07/19 13:29 07/07/19 12:45 CK-MB (CK-2) 0.49 Troponin I < 0.012 Impressions: Chest X-Ray 07/07/19 13:19 IMPRESSION: NO ACUTE FINDINGS. Head CT 07/07/19 13:19 IMPRESSION: NORMAL BRAIN CT WITHOUT CONTRAST. EVIDENCE OF ACUTE STROKE: NO. Venous Doppler Study 07/07/19 13:20 IMPRESSION: NO EVIDENCE DVT OR SVT IN THE RIGHT LEG. Plan Time Spent: Less than 30 Minutes Stroke Is this a Stroke Patient?: No Acute Heart Failure - Is this a Heart Failure Patient?: No
[2019-07-09 11:55] VITALS: BP 119/53
== END 2019-07-09 12:03 | disposition home or self-care (01) ==
LOC: ER 12:38 → EH 15:58 → 4N 17:22
PROVIDERS: ADMIT Internal Medicine; ATTEND Internal Medicine
DX: R42 Dizziness and giddiness (principal); R55 Syncope and collapse; E11.9 Type 2 diabetes mellitus without complications; D72.819 Decreased white blood cell count, unspecified; D69.6 Thrombocytopenia, unspecified; I11.0 Hypertensive heart disease with heart failure; I50.9 Heart failure, unspecified; R53.1 Weakness; R11.0 Nausea; E66.9 Obesity, unspecified; R60.0 Localized edema; E78.5 Hyperlipidemia, unspecified; K21.9 Gastro-esophageal reflux disease without esophagitis; Z79.899 Other long term (current) drug therapy; Z79.4 Long term (current) use of insulin; Z87.891 Personal history of nicotine dependence; Z82.49 Family history of ischemic heart disease and other diseases of the circulatory system; Z90.49 Acquired absence of other specified parts of digestive tract
CPT/HCPCS: 93005 ×2; 99285; 36415; 82553; 82962 ×3; 82550; 83735; 84443; 85025; 85610; 85730; 80053; 81001; 84484; 93971; 71045; 70450; 93010 ×2; 97530 ×2; 97116; 97162; A9270 ×29; J3490; G0378; J1815